=== PATIENT | female | born 1995 | race Caucasian/White ===

== ENCOUNTER 2019-06-23 09:59 | Emergency (ER) | payer OTHER ==
[~2019-06-23] VITALS: Ht 152.4 cm; Wt 66.7 kg
[2019-06-23 10:01] VITALS: Ht 152.4 cm; Wt 66.7 kg
[2019-06-23 11:40] LABS: BASOPHIL % 0.1 % (0-2); PLATELET COUNT 257 x10^3mcL (130-400); RED CELL DISTRIBUTION WIDTH 12.7 % (11.5-14.5)
[2019-06-23 11:50] LABS: CALCIUM 9.1 mg/dL (8.5-10.1); CARBON DIOXIDE 28.3 mmol/L (21-32); CHLORIDE SERUM 97 mmol/L (98-107); CREATININE SERUM 0.7 mg/dL (0.6-1.0); GFR1 > 60 mL/min; GLUCOSE SERUM 87 mg/dL (74-106); POTASSIUM SERUM 3.2 mmol/L (3.5-5.1); SODIUM SERUM 133 mmol/L (136-145)
[2019-06-23 11:55] LABS: ALBUMIN 4.3 g/dL (3.4-5.0); ALKALINE PHOSPHATASE 87 U/L (46-116); ALT/SGPT 33 U/L (14-59); AST/SGOT 20 U/L (15-37); BILIRUBIN TOTAL 0.94 mg/dL (0.20-1.00); TOTAL PROTEIN, SERUM 8.6 g/dL (6.4-8.2)
[2019-06-23 12:59] VITALS: BP 109/85
== END 2019-06-23 13:11 | disposition home or self-care (01) ==
LOC: ED 09:59
PROVIDERS: Emergency Medicine
DX: E87.1 Hypo-osmolality and hyponatremia (principal); E87.6 Hypokalemia; R10.13 Epigastric pain
CPT/HCPCS: 36415; J2405; Q0162

== ENCOUNTER 2019-08-05 10:37 | Emergency (ER) | payer OTHER ==
[~2019-08-05] VITALS: Ht 152.4 cm; Wt 67.1 kg
[2019-08-05 11:13] VITALS: Ht 152.4 cm; Wt 67.1 kg
[2019-08-05 12:40] VITALS: BP 116/75
== END 2019-08-05 12:40 | disposition home or self-care (01) ==
LOC: ED 10:37
DX: J06.9 Acute upper respiratory infection, unspecified (principal); Z90.89 Acquired absence of other organs
CPT/HCPCS: J1885

== ENCOUNTER 2019-08-29 08:33 | Emergency (ER) | payer OTHER ==
[~2019-08-29] VITALS: Ht 152.4 cm; Wt 65.8 kg
[2019-08-29 08:45] VITALS: BP 120/72; Ht 152.4 cm; Wt 65.8 kg
[2019-08-29 11:29] LABS: T4(THYROXINE) 8.1 ug/dL (4.7-13.3)
== END 2019-08-29 12:00 | disposition home or self-care (01) ==
LOC: ED 08:33
PROVIDERS: Emergency Medicine
DX: F41.9 Anxiety disorder, unspecified (principal); G44.209 Tension-type headache, unspecified, not intractable; Z90.89 Acquired absence of other organs
CPT/HCPCS: 36415

== ENCOUNTER 2020-02-22 07:55 | Emergency (ER) | payer OTHER ==
[~2020-02-22] VITALS: Ht 162.6 cm; Wt 65.8 kg
[2020-02-22 07:59] VITALS: Ht 162.6 cm; Wt 65.8 kg
[2020-02-22 08:55] VITALS: BP 123/82
== END 2020-02-22 08:55 | disposition home or self-care (01) ==
LOC: ED 07:55
DX: G47.00 Insomnia, unspecified (principal); R07.89 Other chest pain; Z90.49 Acquired absence of other specified parts of digestive tract; V49.9XXA Car occupant (driver) (passenger) injured in unspecified traffic accident, initial encounter; Y93.89 Activity, other specified; Y92.89 Other specified places as the place of occurrence of the external cause; Y99.8 Other external cause status